=== PATIENT | female | born 2000 | race African-American/Black ===

== ENCOUNTER 2024-10-09 13:11 | Emergency (ER) | payer BC, SELFPAY ==
[2024-10-09 13:18] VITALS: BP 117/69
[2024-10-09 15:55] VITALS: BP 103/67; BMI 30.2
[2024-10-09 15:56] VITALS: BP 103/67
[2024-10-09 16:00] VITALS: BP 105/65
[2024-10-09] MEDS: MOTRIN 600 MG PO (16:59)
[2024-10-09] MEDS: BACTRIM DS 800 MG/160 MG 1 TABLET PO (16:59)
[2024-10-09 17:01] VITALS: BP 109/71
--- NOTE | 2024-10-09 17:03 | ED.SKININJ ---
HPI-Injury
General
Chief Complaint: Skin Problem
Source: patient
Exam Limitations: none
Time Seen by Provider: 10/09/24 16:32
History of Present Illness-Injury
Initial Injury comments:
23-year-old female presents with enlarging lump to the right axillary region for the past 3 days. She denies fevers nausea or vomiting. She is healthy otherwise any medications. No other complaints at this time.
Phy Exam
Physical Exam
Physical Exam:
General: Well-appearing female in no acute respiratory distress
HEENT normocephalic atraumatic
Skin: Erythema and fluctuance noted to the right axillary region. This is tender. No drainage.
Course
Orders/Labs/Results
Orders:
Orders
10/09/24 16:53
Ibuprofen [Motrin] 600 mg PO NOW STA
Sulfamethox./Trimethoprim Ds [Bactrim Ds 800 mg/160 mg] 1 tablet PO NOW STA
Vital Signs
Initial and Last Documented VS:
Initial Vital Signs
Temp Pulse Resp BP Pulse Ox
98.1 F 75 18 117/69 100
10/09/24 13:18 10/09/24 13:18 10/09/24 13:18 10/09/24 13:18 10/09/24 13:18
Last Documented Vital Signs
Temp Pulse Resp BP Pulse Ox
98.1 F 76 18 103/67 100
10/09/24 13:18 10/09/24 15:56 10/09/24 15:56 10/09/24 15:56 10/09/24 15:55
MDM/Problems Addressed
Differential Diagnosis Includes:
Right axillary erythema. Consider abscess versus ingrown hair versus lymph node. Given the fluctuance and the rapid development I believe this is more of an abscess. Verbal consent obtained for incision and drainage. The area was cleansed with
Betadine and anesthetized with 1% lidocaine with epinephrine and incised using 11 blade scalpel. A large amount of purulent foul-smelling material was expressed from the area. Loculations were broken up. Gauze was applied for any drainage. Given
the large amount of purulent fluid and antibiotic was prescribed.
*Pulse Oximetry
SaO2: 100
Oxygen Mode of Delivery: Room air
Patient hypoxic: no
*Critical Care Note
Total Time (30-74mins, 75-104mins- exclusive of procedures): Not Applicable
ED Attending Note
-
Portions of this chart may have been created with voice recognition software.� Occasional wrong word or��sound alike� substitutions may have occurred due to the inherent limitations of voice recognition software.
Discharge Plan
Departure
Patient Disposition: Home (Routine Discharge)
Date of Disposition: 10/09/24
Time of Disposition: 17:05
Patient with high blood pressure during this ER visit?: No
Discharge Problem:
Abscess
Instructions: Skin Abscess
Prescriptions:
New
sulfamethoxazole-trimethoprim [Bactrim DS] 800-160 mg tablet
1 tab PO BID Qty: 14 0RF
Referrals:
NONE,* [Family Provider, Internal Medicine]
Activity Restrictions/Additional Instructions:
Use warm compresses or wash with warm soapy water. Continue with Tylenol or ibuprofen for pain. Use antibiotic as directed. Return if worse otherwise
Interventions
Interventions:
*Risk Screen - Suicide Last Done: 10/09/24 13:18
*General Assessment Last Done: 10/09/24 13:18
*Neglect/Abuse Screening Last Done: 10/09/24 13:18
*ED- Fall Risk Assessment Last Done: 10/09/24 15:55
*ED COVID-19 Vaccine History Last Done: 10/09/24 15:55
ED-Skin Assessment Last Done: 10/09/24 15:58
Discharge Date and Time
Print Language: [place]
== END 2024-10-09 17:35 | disposition home or self-care (01) ==
LOC: EMR 13:11
PROVIDERS: EMERGENCY PHYSICIAN Emergency Medicine
DX: L02.411 Cutaneous abscess of right axilla (principal)
CPT/HCPCS: 99282; 10060